=== PATIENT | female | born 2000 | race Caucasian/White ===

== ENCOUNTER 2021-05-29 12:37 | Emergency (ER) | payer OTHER ==
[~2021-05-29] VITALS: Ht 167.6 cm; Wt 63.6 kg
[2021-05-29 13:47] LABS: COVID AG,FIA SOURCE NASOPHARYNGEAL
[2021-05-29 17:41] VITALS: BP 125/83
== END 2021-05-29 19:59 | disposition short-term general hospital (02) ==
LOC: EMS 12:37
DX: F32.9 Major depressive disorder, single episode, unspecified (principal); Z20.822 Contact with and (suspected) exposure to COVID-19
CPT/HCPCS: 99285